=== PATIENT | male | born 1960 ===

== ENCOUNTER 2017-11-22 05:40 | Emergency (ER) | payer MEDICAID, OTHER ==
--- NOTE | 2017-11-22 06:55 | ED PDOC ---
HPI: CCC, URI, Sore Throat Time Seen by Provider: 11/22/17 06:10 Chief Complaint (Nursing): Chest Pain Chief Complaint (Provider): cough History Per: Patient History/Exam Limitations: no limitations Onset/Duration Of Symptoms: Days (1 and 1/2 months), Intermittent Episodes, Persistent Additional Complaint(s): cough for 1 and 1/2 months, has not seen PMD for it because he reports that it will get better and then return Subj fever chills. Sputum intermittent: sometimes yellow, green or clear. Denies hemoptysis. PMD Dr Rangel Past Medical History Reviewed: Historical Data, Nursing Documentation, Vital Signs Vital Signs: Last Vital Signs Temp 97.7 F 11/22/17 09:00 Pulse 79 11/22/17 09:00 Resp 13 11/22/17 09:00 BP 133/88 11/22/17 09:00 Pulse Ox 95 11/22/17 09:00 - Medical History PMH: HTN - Family History Family History: States: [place], Other Other Family History: Cancer - Social History Current smoker - smoking cessation education provided: Yes (Occasional cigar) Alcohol: Occasional Drugs: Denies - Immunization History Hx Tetanus Toxoid Vaccination: No Hx Influenza Vaccination: No Hx Pneumococcal Vaccination: No - Home Medications Home Medications: Ambulatory Orders Medication Instructions Recorded Cyclobenzaprine HCl [Flexeril] 10 mg PO TID PRN #15 tab 12/11/14 Albuterol HFA [Ventolin HFA 90 1 - 2 puff IH Q4 PRN #1 inhaler 11/22/17 mcg/actuation (8 g)] Azithromycin [Zithromax] 250 mg PO DAILY #6 tab 11/22/17 Prednisone 50 mg PO DAILY #4 tab 11/22/17 - Allergies Allergies/Adverse Reactions: Allergies Allergy/AdvReac Type Severity Reaction Status Date / Time No Known Allergies Allergy Verified 10/03/14 09:05 Review of Systems ROS Statement: Except As Marked, All Systems Reviewed And Found Negative (and as per HPI) Constitutional: Positive for: Fever, Chills ENT: Positive for: Nose Discharge. Negative for: Throat Pain Cardiovascular: Positive for: Chest Pain Respiratory: Positive for: Cough, Shortness of Breath Physical Exam - Reviewed Nursing Documentation Reviewed: Yes Vital Signs Reviewed: Yes - Physical Exam Appears: Positive for: Non-toxic, No Acute Distress Head Exam: Positive for: ATRAUMATIC, NORMOCEPHALIC Skin: Positive for: Warm, Dry Eye Exam: Positive for: EOMI, PERRL ENT: Negative for: Pharyngeal Erythema, Tonsillar Exudate Neck: Positive for: Painless ROM, Supple Cardiovascular/Chest: Positive for: Regular Rate, Rhythm, Chest Non Tender. Negative for: Murmur Respiratory: Positive for: Normal Breath Sounds, Other (occasional coughing attacks). Negative for: Rales, Rhonchi, Wheezing, Respiratory Distress Gastrointestinal/Abdominal: Positive for: Soft. Negative for: Tenderness Back: Positive for: Normal Inspection. Negative for: Decreased ROM Extremity: Positive for: Normal ROM. Negative for: Deformity Lymphatic: Negative for: Adenopathy Neurologic/Psych: Positive for: Alert. Negative for: Motor/Sensory Deficits - Laboratory Results Result Diagrams: 11/22/17 06:50 11/22/17 06:50 - ECG ECG: Positive for: Interpreted By Me ECG Rhythm: Positive for: Normal QRS, Normal ST Segment, Sinus Rhythm O2 Sat by Pulse Oximetry: 99 Pulse Ox Interpretation: Normal Disposition - Clinical Impression Clinical Impression: Cough - Disposition Disposition: Transfer of Care Disposition Time: 07:00 Condition: STABLE Prescriptions: Albuterol HFA [Ventolin HFA 90 mcg/actuation (8 g)] 1 - 2 puff IH Q4 PRN #1 inhaler PRN Reason: Shortness Of Breath Azithromycin [Zithromax] 250 mg PO DAILY #6 tab Prednisone 50 mg PO DAILY #4 tab Print Language: CHADIAN Patient Signed Over To: Corbin Nunez III Handoff Comments: Pending ER workup, reassessment and final ER disposition
[2017-11-22 07:14] LABS: BASO # 0.1 K/uL (0.0-0.2); BASO % 0.9 % (0.0-2.0); EOS # 1.1 K/uL (0.0-0.7); EOS % 19.4 % (0.0-4.0); HEMOGLOBIN 14.3 g/dL (12.0-18.0); LYMPH # 1.9 K/uL (1.0-4.3); LYMPH % 33.1 % (20.0-40.0); MEAN CELL VOLUME 93.6 fl (80.0-94.0); MEAN CORPUSCULAR HEMOGLOBIN 31.8 pg (27.0-31.0); MEAN PLATELET VOLUME 7.6 fl (7.2-11.7); MONO # 0.4 K/uL (0.0-0.8); MONO % 6.8 % (0.0-10.0); NEUT # 2.3 K/uL (1.8-7.0); NEUT % 39.8 % (50.0-75.0); RBC 4.49 Mil/uL (4.40-5.90); RED CELL DISTRIBUTION WIDTH 13.4 % (11.5-14.5); WHITE BLOOD COUNT 5.7 K/uL (4.8-10.8)
[2017-11-22 07:29] LABS: ALB/GLOB RATIO 1.1 (1.0-2.1); ALT/SGPT 44 U/L (21-72); AST/SGOT 32 U/L (17-59); B-TYPE NATRIURETIC PEPTIDE 14.7 pg/ml (0-900); BLOOD UREA NITROGEN 15 mg/dl (9-20); CALCIUM 9.2 mg/dL (8.4-10.2); GFR AFRICAN-AMERICAN > 60; GFR NON-AFRICAN AMERICAN > 60
[2017-11-22] MEDS ORDERED: Albuterol-Ipratrop 3 mg / 0.5 (3 ml) UD INH STA ×2 (08:28→10:53)
[2017-11-22] MEDS ORDERED: Albuterol-Ipratrop 3 mg / 0.5 (3 ml) UD ONE ×2 (08:38→11:36)
[2017-11-22 09:01] VITALS: BP 133/88; PULSE 79; RESP 13; TEMP 97.7
--- NOTE | 2017-11-22 10:57 | RAD ---
HISTORY: cough sob COMPARISON: No prior. TECHNIQUE: Chest PA and lateral FINDINGS: LUNGS: No active pulmonary disease. PLEURA: No significant pleural effusion identified. No pneumothorax apparent. CARDIOVASCULAR: Normal. OSSEOUS STRUCTURES: Mild degenerative changes. VISUALIZED UPPER ABDOMEN: Normal. OTHER FINDINGS: None. IMPRESSION: No active disease.
[2017-11-22 19:46] VITALS: O2SAT 99
== END 2017-11-22 11:43 | disposition home or self-care (01) ==
LOC: H.ER 05:40
DX: R05 Cough (principal); F17.290 Nicotine dependence, other tobacco product, uncomplicated; I10 Essential (primary) hypertension
CPT/HCPCS: 71046; 80053; 83880; 84484; 85025; 85378; 87040; 87804; 96374; 99285; J2930

== ENCOUNTER 2018-06-23 13:29 | Emergency (ER) | payer OTHER ==
[2018-06-23 13:43] VITALS: TEMP 98.8
[2018-06-23] MEDS ORDERED: Albuterol-Ipratrop 3 mg / 0.5 (3 ml) UD ONE ×2 (13:46→14:36)
[2018-06-23] MEDS ORDERED: Albuterol-Ipratrop 3 mg / 0.5 (3 ml) UD INH STA ×2 (13:55→14:25)
--- NOTE | 2018-06-23 14:11 | ED PDOC ---
HPI: SOB/CHF/COPD Time Seen by Provider: 06/23/18 13:44 Chief Complaint (Nursing): Respiratory Distress Chief Complaint (Provider): Difficulty breathing and cough History Per: Patient History/Exam Limitations: no limitations Onset/Duration Of Symptoms: Days (x2 weeks) Current Symptoms Are (Timing): Still Present Associated Symptoms: Chest Pain (w/ cough). denies: Fever, Chills, Ankle/Leg Swelling, Dizziness Additional Complaint(s): Roberto Barker is a 57 year old male, with no significant past medical history, who presents to the emergency department complaining of difficulty breathing and cough onset for x2 weeks. Patient reports symptoms is also associated with chest pain with cough ongoing for x1 week. He reports intermittent bouts of coughing and states he becomes short of breath during these episodes. He took OTC medication for cough. He denies any fever, chills, dizziness, nausea, vomiting, diarrhea, abdominal pain or leg swelling. No further medical complaints. PMD: Dr. Rangel but currently uninsured. Past Medical History Reviewed: Historical Data, Nursing Documentation, Vital Signs Vital Signs: Last Vital Signs Temp 98.8 F 06/23/18 13:40 Pulse 98 H 06/23/18 13:40 Resp 22 06/23/18 13:40 BP 172/108 H 06/23/18 13:40 Pulse Ox 92 L 06/23/18 13:40 - Medical History PMH: HTN - Surgical History Surgical History: No Surg Hx - Family History Family History: States: [place] - Social History Current smoker - smoking cessation education provided: Yes (Quit x1 month ago) Alcohol: None Drugs: Denies - Immunization History Hx Tetanus Toxoid Vaccination: No Hx Influenza Vaccination: No Hx Pneumococcal Vaccination: No - Home Medications Home Medications: Ambulatory Orders Medication Instructions Recorded Albuterol HFA [Ventolin HFA 90 2 puff IH Q4 PRN #1 inh 06/23/18 mcg/actuation (8 g)] Azithromycin [Z-Diego] 250 mg PO ASDIR #6 tab 06/23/18 Benzonatate [Tessalon Perles] 100 mg PO TID PRN #15 sgl 06/23/18 Prednisone 50 mg PO DAILY #5 tablet 06/23/18 - Allergies Allergies/Adverse Reactions: Allergies Allergy/AdvReac Type Severity Reaction Status Date / Time No Known Allergies Allergy Verified 10/03/14 09:05 Review of Systems ROS Statement: Except As Marked, All Systems Reviewed And Found Negative Constitutional: Negative for: Fever, Chills Cardiovascular: Positive for: Chest Pain (w/ cough). Negative for: Edema Respiratory: Positive for: Cough, Shortness of Breath Gastrointestinal: Negative for: Nausea, Vomiting, Abdominal Pain, Diarrhea Neurological: Negative for: Dizziness Physical Exam - Reviewed Nursing Documentation Reviewed: Yes Vital Signs Reviewed: Yes - Physical Exam Appears: Positive for: No Acute Distress (comfortable) Head Exam: Positive for: ATRAUMATIC, NORMAL INSPECTION, NORMOCEPHALIC Skin: Positive for: Normal Color, Warm, Dry Eye Exam: Positive for: Normal appearance, EOMI, PERRL ENT: Positive for: Normal ENT Inspection Neck: Positive for: Normal, Painless ROM, Supple Cardiovascular/Chest: Positive for: Regular Rate, Rhythm. Negative for: Murmur Respiratory: Positive for: Decreased Breath Sounds, Wheezing (expiratory bilaterally). Negative for: Respiratory Distress Gastrointestinal/Abdominal: Positive for: Normal Exam, Soft. Negative for: Tenderness, Guarding, Rebound Back: Positive for: Normal Inspection. Negative for: L CVA Tenderness, R CVA Tenderness, Vertebral Tenderness Extremity: Positive for: Normal ROM (upper and lower extremities). Negative for: Deformity, Swelling Neurologic/Psych: Positive for: Alert, Oriented - Laboratory Results Result Diagrams: 06/23/18 15:02 06/23/18 15:02 - ECG O2 Sat by Pulse Oximetry: 92 (RA) Pulse Ox Interpretation: Abnormal - Radiology X-Ray: Viewed By Me, Read By Radiologist X-Ray Interpretation: No Acute Disease, COPD - Progress Re-evaluation Time: 15:57 Condition: Re-examined, Improved Medical Decision Making Medical Decision Making: Time 13:14 Initial Impression: cough, shortness of breath and wheezing. Differential includes: acute bronchitis, COPD exacerbation (undiagnosed COPD) r/o PNA, atypical ACS and CHF. Initial Plan: --EKG --B-Type Natriuretic Peptide --BMP --Troponin I --CBC w/ differential --Chest one view [RAD] --Duoneb 3 ml INH --SOLU-medrol 125 mg IV --Reevaluation EKG: Normal sinus rhythm @ 80bpm. No ST changes. 14:35 CXR FINDINGS: LUNGS: The lungs are hyperinflated and there is peribronchial thickening with chronic changes in both lungs. No focal consolidation. PLEURA: No pneumothorax or pleural effusion. CARDIOVASCULAR: The heart is normal in size. No aortic atherosclerotic calcifications present. OSSEOUS STRUCTURES: Within normal limits for the patient's age. VISUALIZED UPPER ABDOMEN: Normal. OTHER FINDINGS: None. IMPRESSION: No active pulmonary disease. COPD. -------- Scribe Attestation: Documented by Shmuel Hager, acting as a scribe for Isaias Mckenzie MD. Provider Scribe Attestation: All medical record entries made by the Scribe were at my direction and personally dictated by me. I have reviewed the chart and agree that the record accurately reflects my personal performance of the history, physical exam, medical decision making, and the department course for this patient. I have also personally directed, reviewed, and agree with the discharge instructions and disposition. Disposition - Clinical Impression Clinical Impression: Acute bronchitis with chronic obstructive pulmonary disease (COPD) - Patient ED Disposition Is Patient to be Admitted: No Doctor Will See Patient In The: Office Counseled Patient/Family Regarding: Studies Performed, Diagnosis, Need For Followup - Disposition Referrals: [facility] [Outside] Disposition: Routine/Home Disposition Time: 15:58 Condition: GOOD Additional Instructions: ROBERTO BARKER, thank you for letting us take care of you today. Your provider was Isaias Mckenzie MD and you were treated for CHEST PAIN. The emergency medical care you received today was directed at your acute symptoms. If you were prescribed any medication, please fill it and take as directed. It may take several days for your symptoms to resolve. Return to the Emergency Department if your symptoms worsen, do not improve, or if you have any other problems. Please contact your doctor or call one of the physicians/clinics you have been referred to that are listed on the Patient Visit Information form that is included in your discharge packet. Bring any paperwork you were given at discharge with you along with any medications you are taking to your follow up visit. Our treatment cannot replace ongoing medical care by a primary care provider outside of the emergency department. Thank you for allowing the [facility] team to be part of your care today. If you had an X-Ray or CT scan: A Radiologist will review the ED reading if any change in treatment is needed we will contact you. If you had a blood, urine, or wound culture: It will take several days for the results, if any change in treatment is needed we will contact you. If you had an STI test: It will take 48 hours for the results. Please call after 1 week if you have not heard back. Prescriptions: Albuterol HFA [Ventolin HFA 90 mcg/actuation (8 g)] 2 puff IH Q4 PRN #1 inh PRN Reason: Wheezing Azithromycin [Z-Diego] 250 mg PO ASDIR #6 tab Benzonatate [Tessalon Perles] 100 mg PO TID PRN #15 sgl PRN Reason: Cough Prednisone 50 mg PO DAILY #5 tablet Instructions: Exacerbation of COPD
[2018-06-23] MEDS ORDERED: Promethazine/Cod 6.25mg-10mg/5ml Syr UD PO STA (14:25)
[2018-06-23] MEDS ORDERED: Promethazine/Cod 6.25mg-10mg/5ml Syr UD ONE (14:37)
--- NOTE | 2018-06-23 14:39 | RAD ---
Date of service: 06/23/2018 PROCEDURE: CHEST RADIOGRAPH, 1 VIEW HISTORY: Cough, wheezing and dyspnea COMPARISON: 11/22/2017. FINDINGS: LUNGS: The lungs are hyperinflated and there is peribronchial thickening with chronic changes in both lungs. No focal consolidation. PLEURA: No pneumothorax or pleural effusion. CARDIOVASCULAR: The heart is normal in size. No aortic atherosclerotic calcifications present. OSSEOUS STRUCTURES: Within normal limits for the patient's age. VISUALIZED UPPER ABDOMEN: Normal. OTHER FINDINGS: None. IMPRESSION: No active pulmonary disease. COPD.
[2018-06-23 14:56] VITALS: BP 146/92; PULSE 91; RESP 20
[2018-06-23 15:18] LABS: BASO # 0.1 K/uL (0.0-0.2); EOS # 1.4 K/uL (0.0-0.7); EOS % 23.1 % (0.0-4.0); HEMOGLOBIN 15.4 g/dL (12.0-18.0); LYMPH # 1.9 K/uL (1.0-4.3); LYMPH % 31.5 % (20.0-40.0); MEAN CELL VOLUME 94.5 fl (80.0-94.0); MEAN CORPUSCULAR HGB CONC 34.9 g/dL (33.0-37.0); MEAN PLATELET VOLUME 8.1 fl (7.2-11.7); MONO # 0.4 K/uL (0.0-0.8); NEUT # 2.3 K/uL (1.8-7.0); NEUT % 38.4 % (50.0-75.0); NRBC % 0.2 % (0.0-0.0); PLATELET COUNT 214 K/uL (130-400); RBC 4.69 Mil/uL (4.40-5.90); RED CELL DISTRIBUTION WIDTH 13.8 % (11.5-14.5)
[2018-06-23 15:28] LABS: BLOOD UREA NITROGEN 17 mg/dl (9-20); CALCIUM 9.2 mg/dL (8.4-10.2); GFR NON-AFRICAN AMERICAN > 60
[2018-06-23 15:37] LABS: B-TYPE NATRIURETIC PEPTIDE 28.7 pg/ml (0-900)
[2018-06-23 16:00] VITALS: O2SAT 92
--- NOTE | 2018-06-23 16:45 | CARD ---
APPROVED REPORT Date of service: 06/23/2018 EKG Measurement Heart [id number] <Conclusion> Normal sinus rhythm Normal ECG
[2018-06-23 16:53] LABS: EOSINOPHIL 24 % (0-7); LYMPHOCYTE 34 % (20-50); MONOCYTE 5 % (0-10); NEUTROPHIL 37 % (42-75); TOTAL CELLS COUNTED 100
[2018-06-23 16:54] LABS: PLATELET ESTIMATE NORMAL (NORMAL)
[2018-06-23 16:55] LABS: TOXIC GRANULATION PRESENT
== END 2018-06-23 16:18 | disposition home or self-care (01) ==
LOC: H.ER 13:29
DX: J44.1 Chronic obstructive pulmonary disease with (acute) exacerbation (principal); F17.200 Nicotine dependence, unspecified, uncomplicated; I10 Essential (primary) hypertension
CPT/HCPCS: 71045; 80048; 83880; 84484; 85025; 93005; 94640; 96374; 99283; J2930